=== PATIENT | female | born 1980 | race Caucasian/White ===

== ENCOUNTER 2022-03-11 16:45 | Inpatient (IN) | payer OTHER ==
--- NOTE | ~2022-03-11 | OR ---
[facility] [address], [place] [address] Draft DATE OF OPERATION: 03/12/2022 SURGEON: Ang Weldon DO RN VISITING: Peña PROCEDURE: Primary low transverse . PREOPERATIVE DIAGNOSES: Non-reassuring heart tones remote from delivery, face presentation, chronic hypertension with superimposed preeclampsia with severe features, type 2 diabetes on insulin, advanced maternal age, morbid obesity. POSTOPERATIVE DIAGNOSES: , delivered; face presentation, chronic hypertension with superimposed preeclampsia with severe features, type 2 diabetes on insulin, advanced maternal age and morbid obesity. ANESTHESIA: Spinal. BLOOD LOSS: 750 mL. COMPLICATIONS: None. FINDINGS: viable female , weighing 5 pounds 3 ounces with Apgars of 5 and 8 at 1 and 5 minutes respectively. Normal-appearing bilateral tubes and ovaries. INDICATIONS: The patient is a G5, P2-0-2-2 at 35 and 2 weeks gestation, who was admitted the night prior for preeclampsia with severe features superimposed on chronic hypertension. Case was reviewed with Maternal- Medicine physician, Dr. Quiroz, who recommended delivery. The patient received Cytotec x2. After the 2nd Cytotec, she began having deep decelerations. [place] external monitor started functioning reliably and heart tones were not reliably auscultated with external monitors. Amniotomy was performed to place PATIENT NAME: LANDON NOLASCO OPERATIVE REPORT DATE OF : 82 REPORT #: [id number] PHYSICIAN: ANG WELDON DO PCP: CHRISTAL KHAN DO REPORT IS CONFIDENTIAL AND NOT TO BE RELEASED WITHOUT AUTHORIZATION [facility] [address], [place] [address] Draft scalp electrode at which time face presentation was noted intermittently. heart tones were reassuring. The patient was rechecked repeatedly each time so with facial presentation. Risks, benefits, and alternatives to delivery were discussed with the patient and father of the baby who was present at bedside and they elected to proceed. DESCRIPTION OF PROCEDURE: The patient was taken back to the operating room where she was given 3 g Ancef, 500 mg azithromycin IV. She was prepped and draped in a normal sterile fashion and placed in supine position with a leftward tilt after successful placement of spinal anesthesia. She was prepped and draped in normal sterile fashion with pannus retractors in place. Low-transverse skin incision was made with a scalpel, carried down to the underlying layer of fascia with the scalpel. The fascia was nicked in the midline and extended laterally with Ngo scissors. Inferior margin was grasped and elevated with Tess clamps. Underlying rectus muscles dissected off bluntly and sharply with Ngo scissors. In a similar fashion, superior margin was grasped and elevated. Underlying rectus muscles dissected off bluntly and sharply with Ngo scissors. Peritoneum was entered bluntly, extended with lateral traction. Doug retractor was placed. Hysterotomy was made with a scalpel and uterus was entered bluntly and digitally. Hysterotomy was extended laterally with superior and inferior gentle digital traction. Infant's head was easily elevated to the level of the incision. A loose nuchal was noted and reduced and baby was delivered through. Cord was immediately doubly clamped and cut and baby was handed to waiting nursery team including city plant supervisor and respiratory therapist for additional evaluation and resuscitation. Segment of cord was doubly clamped and cut for cord gases, which were collected. Cord blood was collected for type and Jerome and placenta was manually expressed and noted to be intact with a centrally inserted three vessel cord. Uterus was cleared of clots and debris. Stay suture of 0 Monocryl was placed at the right apex and hysterotomy was closed in a two-layer closure with 0 Monocryl, 1st in a running locked fashion and 2nd in an imbricating manner. Persistent area of bleeding was noted near the right apex. [id number]-ed-[id number] suture was placed with resulting hemostasis. The pelvis was suction irrigated with warm sterile saline following 2nd layer of closure and again hemostasis was noted. Uterus, tubes and ovaries were inspected with normal findings as noted above. Doug retractor was removed. The peritoneum was closed with 0 Vicryl in a running fashion. Rectus muscles were reapproximated at midline with 0 Vicryl in a simple interrupted fashion x3. Fascia was closed with 0 Vicryl in a running fashion, working 1st from right apex to midline and 2nd with a separate stitch from left apex to midline meeting in the middle. Subcutaneous layer was irrigated with warm sterile saline. Perforating vessels were cauterized with Bovie cautery. Seth's fascia was closed in a running fashion with 2-0 Vicryl and the more superficial subcutaneous layer was closed with 3-0 Vicryl in a running fashion. Excellent hemostasis was noted. Skin was reapproximated with kvng. Sponge and instrument counts were correct. Uterus was Crede'd and noted to be firm PATIENT NAME: LANDON NOLASCO OPERATIVE REPORT DATE OF : 82 REPORT #: [id number] PHYSICIAN: ANG WELDON DO PCP: CHRISTAL KHAN DO REPORT IS CONFIDENTIAL AND NOT TO BE RELEASED WITHOUT AUTHORIZATION [facility] [address] [place], [place] [address] Draft with minimal clots. The patient was taken to recovery in stable and satisfactory condition. Ang Weldon DO EMZ/MODL /[id number] Copies: ~ PATIENT NAME: LANDON NOLASCO OPERATIVE REPORT DATE OF : 82 REPORT #: [id number] PHYSICIAN: ANG WELDON DO PCP: CHRISTAL KHAN DO REPORT IS CONFIDENTIAL AND NOT TO BE RELEASED WITHOUT AUTHORIZATION
--- NOTE | 2022-03-11 18:45 | NUR ---
BOTH NARES SWABBED WITHOUT COMPLICATION.
[2022-03-11] MEDS ORDERED: LABETALOL HCL200 MG PO (21:18)
--- NOTE | 2022-03-12 01:30 | PR ---
[facility] [address] [place], [place] [address] Signed Progress Notes IP Datetime Report Generated by CPN: 03/12/2022 01:30 PROGRESS NOTES: [id number] Impression: Non-reassuring Heart Rate Other Impressions: Face presentation Procedures: Artificial ROM Plan: Deliver- Section Informed Consent Obtain: Section Delivery VITAL SIGNS: [id number] Vital Signs: Reviewed VS Notable Details: sustained severe BP EXAM: [id number] Dilatation: 1.0 Effacement: 70 Station: -3 Contractions: none MEMBRANES: [id number] Membranes Status: Ruptured Comments: Pt was having intermittent deep decelerations, on bedside assessment [place] monitor stopped working. Unable to maintain tracing with external monitors, discussed placement of FSE. AROM performed without difficulty yielding large amount clear fluid. However, ear was immediately palpable. After completion of fluid evacuation, facial parts were palpable. Still unable to assess heart rate, terbutaline was administered. Bedside monitoring improved, FETUS A: [id number] FHR Baseline: 135 Variability: Moderate 6-25bpm Accelerations: 15X15 Decelerations: None FHR Category: Category I Presentation: Vertex Comments on Fetus A: no evidence of acidemia FETUS B: [id number] Signing Physician: Ang Weldon DO *Electronically Signed* 03/12/22 0130 ANG WELDON DO PATIENT NAME: LANDON NOLASCO PROGRESS NOTE DATE OF : 82 PHYSICIAN: ANG WELDON DO [facility] #: [id number] REPORT IS CONFIDENTIAL AND NOT TO BE RELEASED WITHOUT AUTHORIZATION
--- NOTE | 2022-03-12 03:17 | NUR ---
03/12/22 0317 Sharmaine Hollingsworth 0303-PATIENT ARRIVED TO PACU RM 101. PATIENT AWAKE DROWSY DENIES PAIN OR NAUSEA. RR EVEN. ROLLINS CATHETER DRAINING BLOOD TINGED URINE. IVF INFUSING. MAGNESIUM AND LR WITH 30 PITOCIN. DAD AT BEDSIDE HOLDING BABY. PATIENT DOZES TO SLEEP. FUNDUS 1 BELOW UMBILICUS LIGHT RUBRA DRAINAGE ON EILEEN PAD FIRM. SR 0312-PATIENT SLEEPING RA 93% RR EVEN. DAD HOLDING BABY.
--- NOTE | 2022-03-12 08:34 | PR ---
[facility] [address] [place], [place] [address] Signed PP Progress Notes Datetime Report Generated by CPN: 03/12/2022 08:34 SUBJECTIVE: [id number] Pain: Within Normal Limits Vital Signs: [id number] Vital Signs: Reviewed Exam Comments: NAD, in wheelchair in nursery with baby IMPRESSION/PLAN/PROCEDURES: [id number] Other Impression: cHTN with superimposed PreE with severe features Plan: Continue Present Management Progress Notes: POD#0 s/p PLTCS for nonreassuring heart tones remote from delivery, face presentation cHTN with superimposed preE with severe features: 0530 mag level = 4.9 (currently running at 2.5g/hr). Continue MgSO4 @ 2.5g/hr, next mag level @ 1130. Plan to continue mag for minimum 24hr BP mildly elevated since receiving labetalol 100mg po @ 0600. Continue labetalol 100mg po BID T2DM: antepartum on NPH 50 units qam and 60 units qhs, with lispro 12 units q meal. Intrapartum: continue IV insulin protocol, continue clear liquid diet while on magnesium Signing Physician: Ang Weldon DO Copies: ~ *Electronically Signed* 03/12/22 0834 ANG WELDON DO PATIENT NAME: LANDON NOLASCO PROGRESS NOTE DATE OF : 82 PHYSICIAN: ANG WELDON DO [facility] #: [id number] REPORT IS CONFIDENTIAL AND NOT TO BE RELEASED WITHOUT AUTHORIZATION
--- NOTE | 2022-03-13 10:56 | PR ---
[facility] [address] [place], [place] [address] Signed PP Progress Notes Datetime Report Generated by CPN: 03/13/2022 10:56 SUBJECTIVE: [id number] Pain: Within Normal Limits Nausea/Vomiting: Present Flatus: Yes Bowel Movement: No Vital Signs: [id number] Vital Signs: Reviewed Notable Details: BP acceptable since MGSO4 discontinued EXAM: Ongoing Cardiovascular: Normal Respiratory: Normal Abdomen/Uterus: Normal Lochia: Normal Breasts: Normal CVA Tenderness: Normal Extremities: Normal Incision: Normal Exam Comments: NAD No dyspnea/ retractions Abd SNTND, FFBU, Incision c/d/i Ext: trace edema neg Tucker's BL IMPRESSION/PLAN/PROCEDURES: [id number] Impression: Normal Progression Other Impression: cHTN with superimposed PreE with severe features Plan: Discharge Progress Notes: POD#1 s/p PLTCS cHTN with superimposed preE with severe features: s/p MgSO4 x 24h PP. BP stable since discontinuation on labetalol 100mg po BID T2DM: glucose 150-180s, resume insulin @ NPH 10 units qam and 15 units qhs DC today so pt can be with baby at NICU -PreE precautions -Follow-up in office on Thursday for staple removal and BP check Signing Physician: Ang Weldon DO *Electronically Signed* 03/13/22 1056 ANG WELDON DO PATIENT NAME: LANDON NOLASCO PROGRESS NOTE DATE OF : 82 PHYSICIAN: ANG WELDON DO RPT #: [id number] REPORT IS CONFIDENTIAL AND NOT TO BE RELEASED WITHOUT AUTHORIZATION
--- NOTE | 2022-03-14 12:16 | PATH ---
[facility] [address] [place], [place] [address] Signed SPECIMEN(S): A PLACENTA, 3RD TRIMESTER SPECIMEN SOURCE: A. PLACENTA, 3RD TRIMESTER CLINICAL HISTORY: Preeclampsia FINAL PATHOLOGIC DIAGNOSIS: Placenta, 3rd trimester: - Mature 275-gram placenta with three-vessel umbilical cord. - Slight subchorionitis. - Negative for significant amnionitis or funisitis. - Focal partial thickness placental disc infarction (less than 5% of placental disc volume). - Villous and perivillous fibrin deposition and focal microcalcification. JVR:mfr:C2NR MICROSCOPIC EXAMINATION: Histologic sections of all submitted blocks are examined by light microscopy. These findings, together with the gross examination, support the pathologic diagnosis. GROSS DESCRIPTION: The specimen, labeled and designated "Essie, placenta, third trimester," is received fresh and placed in formalin and consists of a woo discoid placenta with the following parameters: Umbilical cord: Insertion eccentric, measurement 17.6 x up to 1.2 cm; trivascular. No additional cord segment. Cord coiling index (per 10 cm): 1. Lesions: Not grossly identified. Membranes: Insertion site: Marginal, rapp/translucent. Partially intact. Other: Not grossly identified. Chorionic Plate: Normal radiating vascular pattern, blue-purple, and shiny. Lesions: Not grossly identified. Other: Not grossly identified. Maternal Surface: Normal cotyledons, intact. Lesions: Not grossly identified. Measurement: 14.2 x 12.0 x 2.7 cm. 275 g Cut Surface: Maroon and spongy. Lesions: An area of infarct and an area hemorrhage. Basal plate fibrin is 0.1 cm in thickness. Other Findings: Not grossly identified. Cassette Summary: (A1) membranes and umbilical cord PATIENT NAME: LANDON NOLASCO PATHOLOGY DATE OF : 82 REPORT #: [id number] PHYSICIAN: CONCHITA PARISI PCP: CHRISTAL KHAN DO REPORT IS CONFIDENTIAL AND NOT TO BE RELEASED WITHOUT AUTHORIZATION [facility] [address] [place], [place] [address] Signed (A2) placenta parenchyma (A3) placenta parenchyma (A4) placenta parenchyma HH (under the direct supervision of a pathologist) The Gross Description was prepared using a voice recognition system. The report was reviewed for accuracy; however, sound-alike word errors, addition and/or deletions may occur. If there is any question about this report, please contact Client Services. PERFORMING LABORATORY: The technical component was performed by [facility], [address] [place] [id number] (CLIA# [id number]). Professional interpretation was performed by [facility] - [facility], [address] [place] [id number] (CLIA#: [id number]). Diagnostician: Yo Khan MD Pathologist Electronically Signed 03/14/2022 Copies: ~ PATIENT NAME: LANDON NOLASCO PATHOLOGY DATE OF : 82 REPORT #: [id number] PHYSICIAN: CONCHITA PARISI PCP: CHRISTAL KHAN DO REPORT IS CONFIDENTIAL AND NOT TO BE RELEASED WITHOUT AUTHORIZATION
== END 2022-03-13 12:39 | disposition home or self-care (01) | DRG 786 ==
LOC: FBCO 16:45 → FBC 16:50
PROVIDERS: ADMIT Obstetrics & Gynecology; ATTEND Obstetrics & Gynecology
PROC: 10D00Z1 Extraction of Products of Conception, Low, Open Approach (ICD-10-PCS; principal; 2022-03-12 01:30)
DX: O76 Abnormality in fetal heart rate and rhythm complicating labor and delivery (principal); O24.12 Pre-existing type 2 diabetes mellitus, in childbirth; O99.214 Obesity complicating childbirth; Z3A.35 35 weeks gestation of pregnancy; Z20.822 Contact with and (suspected) exposure to COVID-19; Z67.10 Type A blood, Rh positive; E66.01 Morbid (severe) obesity due to excess calories; O14.14 Severe pre-eclampsia complicating childbirth; Z79.4 Long term (current) use of insulin
CPT/HCPCS: 36415; 59025; 80053; 82565; 82570; 82803; 83615; 83735; 84156; 84550; 85027; 86850; 86900; 86901; 87502; 87653; A9270; C9803; G0463; J0456; J0690; J1650; J1885; J2274; J2300; J2405; J2540; J2550; J2590; J3105; J3475; J7042; J7121; U0003

== ENCOUNTER 2023-07-25 16:31 | Emergency (ER) | payer OTHER ==
[~2023-07-25] VITALS: Ht 167.6 cm; Wt 110.8 kg
[~2023-07-25 16:31] MED LIST: LABETALOL HCL200 MG PO
[2023-07-25] MEDS ORDERED: FLUOXETINE HCL20 MG PO (16:44)
[2023-07-25] MEDS ORDERED: LEVOTHYROXINE25 MCG PO (16:45)
[2023-07-25] MEDS ORDERED: GLIPIZIDE5 MG PO (16:45)
[2023-07-25] MEDS ORDERED: OLMESARTAN MEDO20 MG PO (16:45)
[2023-07-25] MEDS ORDERED: TRI-MILI 28 TA1 EACH PO (16:46)
[2023-07-25] MEDS ORDERED: PANTOPRAZOLE SO20 MG PO (16:46)
[2023-07-25] MEDS ORDERED: KETOROLAC TROMETHAMINE 15 MG/ML VIAL IV ONE (18:45)
[2023-07-25] MEDS ORDERED: SODIUM CHLORIDE 0.9% 1,000 ML IV PRN (18:45)
[2023-07-25] MEDS ORDERED: diphenhydrAMINE HCL 50 MG/ML VIAL IV ONE (18:45)
[2023-07-25] MEDS ORDERED: PROCHLORPERAZINE EDISYLATE 10 MG/2 ML VIAL IV ONE (18:45)
[2023-07-25 18:57] LABS: BASOPHILS 0.3 % (0-2); EOSINOPHILS 0.4 % (0-6); HEMATOCRIT 41.4 % (35.0-50.0); HEMOGLOBIN 13.7 g/dL (12.0-18.0); LYMPHOCYTES 18.3 % (24-44); MCH 28.3 (27-36); MCHC 33.1 g/dl (30-36); MCV 85.4 fl (81-99); MONOCYTES 5.2 % (0-12); NEUTROPHILS 75.8 % (39-80); PLATELET COUNT 291 K/uL (140-440); RBC 4.86 M/ul (4.3-5.7); RDW 13.9 (10.5-15.0)
[2023-07-25 19:06] LABS: ALBUMIN/GLOBULIN RATIO 0.71 (1.1-2.4); ANION GAP 13.2 (7-21); BILIRUBIN, TOTAL 0.3 ng/dL (0.2-1.0); CALCIUM 8.5 mg/dL (8.5-10.1); CREATININE, SERUM 0.7 mg/dL (0.55-1.02); POTASSIUM 4.2 mmol/L (3.5-5.1); PROTEIN, TOTAL 7.2 g/dL (6.4-8.2)
[2023-07-25] MEDS ORDERED: PROCHLORPERAZIN10 MG PO (20:31)
[2023-07-25 20:46] VITALS: BP 146/93
== END 2023-07-25 20:46 | disposition home or self-care (01) ==
LOC: ED 16:31
PROVIDERS: Emergency Medicine
DX: G43.909 Migraine, unspecified, not intractable, without status migrainosus (principal); E11.9 Type 2 diabetes mellitus without complications; I10 Essential (primary) hypertension; E03.9 Hypothyroidism, unspecified; K21.9 Gastro-esophageal reflux disease without esophagitis; Z79.818 Long term (current) use of other agents affecting estrogen receptors and estrogen levels; Z79.899 Other long term (current) drug therapy
CPT/HCPCS: 36415; 70450; 70496; 70498; 80053; 84703; 85025; 96374; 96375; 99284-25; J0780; J1200; J1885; J7030; Q9967